=== PATIENT | male | born 1970 | race Caucasian/White ===

== ENCOUNTER 2023-01-07 15:21 | Emergency (ER) | payer BC ==
[2023-01-07] MEDS ORDERED: Acetaminophen 500 MG TAB ONE (15:51)
== END 2023-01-07 16:27 | disposition home or self-care (01) ==
LOC: MADERS 15:21
DX: M17.12 Unilateral primary osteoarthritis, left knee (principal); M25.462 Effusion, left knee; F17.210 Nicotine dependence, cigarettes, uncomplicated